=== PATIENT | female | born 2005 | race Caucasian/White ===

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

== ENCOUNTER 2024-03-16 05:36 | Emergency (ER) | payer OTHER, SELFPAY ==
[2024-03-16 05:43] VITALS: BP 133/97; PULSE 104; RESP 18; TEMP 36.1; O2SAT 100
--- NOTE | 2024-03-16 05:46 | ED.WOUNDLAC ---
HPI - Wound/Laceration General Chief Complaint: Wound/Laceration Stated Complaint: laceration Time Seen by Provider: 03/16/24 05:46 Source: patient Mode of arrival: ambulatory Limitations: no limitations History of Present Illness HPI narrative: 19-year-old female with is a history of anxiety / depression, migraine presents to the ER after -- a laceration over the dorsal thumb. The laceration is U shaped and measures 3 cm. No other injuries noted. No recent tetanus immunization. Onset (ago): minute(s) ( 30 minutes ago) Extremity Location: Right: hand Place: home Patient tetanus UTD: No Context: accidental Associated symptoms: none Related Data Home Medications Medication Instructions Recorded Confirmed escitalopram oxalate 10 mg tablet 10 mg PO DAILY 02/10/24 03/16/24 propranolol 10 mg tablet 10 mg PO .DAILY PRN anxiety/heart 02/10/24 03/16/24 palpitations Allergies Allergy/AdvReac Type Severity Reaction Status Date / Time No Known Allergies Allergy Verified 03/16/24 05:41 Review of Systems Review of Systems: All systems reviewed & are unremarkable except as noted in HPI and below PMFSH Past Medical History Medical History Anxiety Depression Hypokalemia Menorrhagia Migraines PTSD (post-traumatic stress disorder) Family History Family History Father , noncompliance with DM II - due to this Diabetes mellitus Mother Uterine cancer Breast cancer Anxiety Depression Social History Social History Social History: Vape - occasional - nicotine, MJ Smoking status: Current every day smoker Tobacco type: e-cigarettes/vaping Second hand tobacco smoke exposure: Yes Alcohol intake: never Alcohol use details: social - but not common, maybe once monthly if that. Substance use: current Substance use type: marijuana Exam Const: General: healthy appearing and no acute distress Nutritional Appearance: well nourished Orientation/consciousness: patient oriented x3 Limitations: no limitations HENMT: Head: normal to inspection Ears: external ears normal Face/Nose/Sinus: Normal external nose present Face and sinus: normal facial exam Mouth: Yes Normal oral and palatal mucosa present Throat: posterior oropharynx normal Eyes: Conjunctivae: conjunctivae normal Pupils: Equal, round and reactive pupils present EOM: EOMs intact bilaterally Direct Ophthalmoscopy: no photophobia Neck: Neck: normal visual inspection, no lymphadenopathy and no meningeal signs Chest: Chest palpation & inspection: normal inspection of the chest Resp: Effort & Inspection: normal respiratory effort Auscultation: clear to auscultation bilaterally Cardio: Rate: regular rate Rhythm: regular rhythm GI: GI Palp: Yes Soft to palpation Back/Spine/Pelvis: Back: no CVA tenderness Skin: General skin exam: normal color Other: U shaped laceration over the right dorsal thumb. Neuro: General: patient oriented x3, moves all extremities, no meningeal signs, no focal motor deficits and CN's II-XI intact bilaterally Cranial nerves: Yes Nystagmus not present Speech: normal speech Gait exam (Neuro): Normal gait present Extrem: General: normal to inspection, no clubbing, cyanosis or edema and no pedal edema Psych: Mental Status: mental status grossly normal Affect: normal affect Attitude: cooperative Course Course Emergency Course: U shaped laceration of the thumb. Status post Dermabond Vital Signs Vital signs: Vital Signs Temperature 36.1 C L 03/16/24 05:43 Pulse Rate 104 H 03/16/24 05:43 Respiratory Rate 18 03/16/24 05:43 Blood Pressure 133/97 H 03/16/24 05:43 Pulse Oximetry 100 03/16/24 05:43 Oxygen Delivery Room Air 03/16/24 05:43 Temperature 36.1 C L 03/16/24 05:43 Pulse Rate 104 H
[2024-03-16] MEDS: TETANUS,DIPHTHERIA,AC PERTUSSIS ADULT 0.5 ML (ADACEL) IM (06:03)
== END 2024-03-16 06:10 | disposition home or self-care (01) ==
PROVIDERS: Emergency Provider Internal Medicine Critical Care Medicine; PCP Nurse Practitioner Family
DX: S61.012A Laceration without foreign body of left thumb without damage to nail, initial encounter (principal); F41.9 Anxiety disorder, unspecified; F32.A Depression, unspecified; F43.10 Post-traumatic stress disorder, unspecified; F17.290 Nicotine dependence, other tobacco product, uncomplicated; F12.90 Cannabis use, unspecified, uncomplicated; X58.XXXA Exposure to other specified factors, initial encounter; Z23 Encounter for immunization
CPT/HCPCS: 12001; 90471; 90715; 99282